=== PATIENT | female | born 1945 | race Caucasian/White ===

== ENCOUNTER → 2017-04-02 | Outpatient (CLI) | payer MEDICARE, OTHER | END | disposition home or self-care (01) | LOC: RAD.S 02-24 09:10 | DX: Z12.31 Encounter for screening mammogram for malignant neoplasm of breast (principal) ==

== ENCOUNTER 2017-04-13 07:12 | Day surgery (SDC) | payer MEDICARE, OTHER ==
[~2017-04-13] VITALS: Ht 162.6 cm
--- NOTE | 2017-04-28 14:15 | CVR ---
ADMIT: 04/13/2017 RM/LOC: [facility] MR#: [id number] [address] [id number] [place] [address] Cardioversion Report SEX: F AGE: 71 : 1945 DATE: 04/13/2017 Following informed consent in the short stay surgery unit department with the assistance of anesthesia, consultation was performed. 120 joules of biphasic energy was delivered with the pads in anterior and posterior fashion. It was synched. The patient went into normal sinus rhythm. No complications. Nathen Light MD/ sam JOB #: [id number] CC: Fransisco Light, Attending Physician Erasmo Ding, Family Physician
== END 2017-04-13 11:00 | disposition home or self-care (01) ==
LOC: SSS 07:12
DX: I48.0 Paroxysmal atrial fibrillation (principal); E11.9 Type 2 diabetes mellitus without complications; E78.5 Hyperlipidemia, unspecified; I10 Essential (primary) hypertension; I25.10 Atherosclerotic heart disease of native coronary artery without angina pectoris; Z79.82 Long term (current) use of aspirin; I25.2 Old myocardial infarction; Z79.899 Other long term (current) drug therapy; Z98.890 Other specified postprocedural states; Z98.51 Tubal ligation status